=== PATIENT | female | born 2000 | race Caucasian/White ===

== ENCOUNTER 2023-01-28 14:14 | Inpatient (IN) | payer OTHER ==
[~2023-01-28] VITALS: Ht 165.1 cm; Wt 54.5 kg
[~2023-01-28 14:14] MED LIST: DEXAMETHASONE SOD PHOS 4 MG/ML VIAL IVP ONE; FentaNYL CITRATE PF 100 MCG/2 ML VIAL IVP ONE; HYDROmorphone HCL 2 MG/ML SYRINGE IVP ONE; LIDOCAINE/PF 2% 5 ML VIAL IM ONE; MIDAZOLAM HCL 2 MG/2 ML VIAL IVP ONE; ONDANSETRON HCL 4 MG/2 ML VIAL IVP ONE; PROPOFOL 1% 20 ML VIAL IVP ONE; SUCCINYLCHOLINE CHLORIDE 20 MG/ML 10 ML VIAL IVP ONE
[2023-01-28] MEDS ORDERED: MICROFIBRILLAR COLLAGEN 1 GM PACKAGE TP ONE (14:17)
[2023-01-28] MEDS ORDERED: BUPIVACAINE HCL/PF 0.5% 30 ML VIAL ONE (14:17)
[2023-01-28] MEDS ORDERED: VANCOMYCIN HCL 1 GM/VIAL ONE (14:17)
[2023-01-28] MEDS ORDERED: BUPIVACAINE HCL/PF 0.25% 30 ML VIAL ONE (14:27)
[2023-01-28] MEDS ORDERED: RINGERS SOLUTION,LACTATED 1,000 ML IV ONE (14:28)
[2023-01-28] MEDS ORDERED: BUPIVACAINE LIPOSOME/PF 1.3%-13.3MG/ML SUSPENSION 20 ML VIAL INJ ONE (14:30)
[2023-01-28] MEDS ORDERED: ASPI-1451 PO (14:31)
[2023-01-28] MEDS ORDERED: CEPH500C2 PO (14:31)
[2023-01-28] MEDS ORDERED: MUPI22OI2 TP (14:31)
[2023-01-28] MEDS ORDERED: ONDA4TAB96 PO (14:31)
[2023-01-28] MEDS ORDERED: HYDR-4061 PO (14:31)
[2023-01-28] MEDS ORDERED: BACTDSB PO (14:31)
[2023-01-28] MEDS ORDERED: IBUP-2070 PO (14:31)
[2023-01-28] MEDS ORDERED: ESCI10 PO (14:32)
[2023-01-28] MEDS ORDERED: CHOL500043 PO (14:32)
[2023-01-28] MEDS ORDERED: ACETAMINOPHEN 325 MG TABLET PO PRN (14:45)
[2023-01-28] MEDS ORDERED: ONDANSETRON HCL 4 MG/2 ML VIAL IVP PRN (14:45)
[2023-01-28] MEDS ORDERED: MAGNESIUM HYDROXIDE SUSPENSION 30 ML UDCUP PO PRN (14:45)
[2023-01-28 14:57] LABS: COVID AG,FIA SOURCE NASOPHARYNGEAL
[2023-01-28] MEDS ORDERED: SODIUM CHLORIDE 0.9% 1,000 ML IV ONE (15:00)
[2023-01-28] MEDS ORDERED: HEPARIN SODIUM,PORCINE 5,000 UNITS/ML VIAL SQ SCH (16:00)
[2023-01-28] MEDS ORDERED: MEPERIDINE-PF 25 MG/ML VIAL IVP PRN (16:15)
[2023-01-28] MEDS ORDERED: ACETAMINOPHEN 1000 MG/ISO-OSM 100 ML IV ONE (16:18)
[2023-01-28] MEDS ORDERED: FentaNYL CITRATE PF 100 MCG/2 ML VIAL ONE (16:26)
[2023-01-28] MEDS: FentaNYL CITRATE PF 100 MCG/2 ML VIAL IVP PRN ×2 (16:27→16:42)
[2023-01-28] MEDS ORDERED: HYDROmorphone HCL 2 MG/ML SYRINGE ONE (16:57)
[2023-01-28] MEDS: HYDROmorphone HCL 2 MG/ML SYRINGE IVP PRN ×5 (16:58→17:34)
[2023-01-28 18:16] LABS: BASOPHILS % (AUTO) 0.2 % (0.0-2.0); EOSINOPHILS % (AUTO) 0 % (1.0-6.0); HEMATOCRIT 29.5 % (36-46); HEMOGLOBIN 9.9 g/dL (12.0-16.0); LYMPHOCYTES % (AUTO) 8.4 % (22.0-44.0); MEAN CORPUSCULAR HEMOGLOBIN 28.5 pg (26.0-34.0); MEAN CORPUSCULAR HGB CONC 33.5 G/dL (31.0-37.0); MEAN CORPUSCULAR VOLUME 85 fL (80-100); MONOCYTES # (AUTO) 0.1 K/uL (0.1-1.0); MONOCYTES % (AUTO) 0.8 % (2.0-9.0); NEUTROPHILS # (AUTO) 10.6 K/uL (1.8-7.7); PLATELET COUNT (AUTO) 277 K/uL (150-450); RED BLOOD CELL COUNT(AUTO) 3.48 MIL/uL (4.00-5.20); RED CELL DISTRIBUTION WIDTH 12.6 % (11.5-14.5)
[2023-01-28 18:17] LABS: NEUTROPHILS % (AUTO) 90.6 % (40.0-70.0)
[2023-01-28 18:25] LABS: ANION GAP 7 mmol/L (8-16); CALCIUM, TOTAL 8.7 mg/dL (8.8-10.5); CARBON DIOXIDE 24 mmol/L (22-29); CHLORIDE 105 mmol/L (98-107); GLOMERULAR FILTR. RATE CALC > 60 mL/min (>60); GLUCOSE,RANDOM 122 mg/dL (70-110); POTASSIUM 3.8 mmol/L (3.5-5.1); SODIUM SERUM 136 mmol/L (136-145); UREA NITROGEN, BLOOD 12 mg/dL (7-18)
[2023-01-28 18:27] VITALS: BP 114/68
[2023-01-28 18:31] LABS: ALANINE AMINOTRANSFERASE 23 U/L (12-78); ALBUMIN 3.5 g/dL (3.4-5.0); ALKALINE PHOSPHATASE 57 U/L (46-116); ASPARTATE AMINOTRANSFERASE 16 U/L (15-37); BILIRUBIN,TOTAL 0.2 mg/dL (0.1-1.0); TOTAL PROTEIN, SERUM 7.3 g/dL (6.4-8.2)
[2023-01-28] MEDS: OxyCODONE HCL/ACETAMINOPHEN 5-325 MG TABLET PO PRN ×2 (18:39→21:17)
[2023-01-28 19:51] VITALS: BP 113/70
[2023-01-28] MEDS: DOCUSATE SODIUM 100 MG CAPSULE PO SCH (21:00)
[2023-01-28] MEDS: OXYGEN THERAPY IH SCH (21:18)
[2023-01-29] MEDS: OxyCODONE HCL/ACETAMINOPHEN 5-325 MG TABLET PO PRN ×2 (00:16→02:57)
[2023-01-29] MEDS: CeFAZolin 1 GM/DEXTROSE 50 ML IV SCH ×3 (00:16→15:48)
[2023-01-29 03:15] VITALS: BP 109/58
[2023-01-29] MEDS ORDERED: MORPHINE SULFATE 2 MG/ML SYRINGE IVP PRN (03:45)
[2023-01-29] MEDS: OXYGEN THERAPY IH SCH ×2 (08:00→21:06)
[2023-01-29 08:17] VITALS: BP 111/53
[2023-01-29] MEDS ORDERED: FentaNYL CITRATE PF 100 MCG/2 ML VIAL IVP ONE ×2 (08:30→12:00)
[2023-01-29] MEDS ORDERED: SODIUM CHLORIDE 0.9% 500 ML IV ONE (09:00)
[2023-01-29] MEDS: ENOXAPARIN SODIUM 40 MG/0.4 ML PF SYRINGE SQ SCH (09:02)
[2023-01-29] MEDS: FAMOTIDINE 20 MG TABLET PO SCH (09:03)
[2023-01-29] MEDS: DOCUSATE SODIUM 100 MG CAPSULE PO SCH ×2 (09:03→21:05)
[2023-01-29] MEDS: HYDROmorphone HCL 2 MG/ML SYRINGE IVP PRN ×2 (10:11→12:14)
[2023-01-29] MEDS ORDERED: LIDOCAINE/PF 2% 5 ML VIAL IM ONE (12:00)
[2023-01-29] MEDS ORDERED: SODIUM CHLORIDE 0.9% 1,000 ML ONE (13:08)
[2023-01-29] MEDS ORDERED: BUPIVACAINE HCL/PF 0.5% 30 ML VIAL ONE (13:42)
[2023-01-29] MEDS: ACETAMINOPHEN 1000 MG/ISO-OSM 100 ML IV SCH ×2 (15:09→21:04)
[2023-01-29 16:18] VITALS: BP 114/72
[2023-01-29] MEDS ORDERED: VANCOMYCIN HCL 1 GM in DEXTROSE 5%-WATER 250 ML IV ONE (17:30)
[2023-01-29 20:24] VITALS: BP 108/60
[2023-01-29] MEDS: MetroNIDAZOLE 500 MG TABLET PO SCH (21:05)
[2023-01-29] MEDS: CefTRIAXone SODIUM 2 GM in DEXTROSE 5%-WATER 50 ML IV SCH (22:38)
[2023-01-29] MEDS: VANCOMYCIN HCL 1 GM in DEXTROSE 5%-WATER 250 ML IV SCH (23:30)
[2023-01-30] MEDS: HYDROmorphone HCL 2 MG/ML SYRINGE IVP PRN ×3 (03:32→19:00)
[2023-01-30 04:59] VITALS: BP 112/53
[2023-01-30 06:43] LABS: BASOPHILS % (AUTO) 0.3 % (0.0-2.0); EOSINOPHILS % (AUTO) 0 % (1.0-6.0); HEMATOCRIT 29.4 % (36-46); HEMOGLOBIN 10.1 g/dL (12.0-16.0); LYMPHOCYTES # (AUTO) 1.5 K/uL (1.0-4.8); LYMPHOCYTES % (AUTO) 21.9 % (22.0-44.0); MEAN CORPUSCULAR HEMOGLOBIN 29.1 pg (26.0-34.0); MEAN CORPUSCULAR HGB CONC 34.3 G/dL (31.0-37.0); MEAN CORPUSCULAR VOLUME 85 fL (80-100); MONOCYTES # (AUTO) 0.4 K/uL (0.1-1.0); NEUTROPHILS % (AUTO) 71.8 % (40.0-70.0); PLATELET COUNT (AUTO) 294 K/uL (150-450); RED BLOOD CELL COUNT(AUTO) 3.47 MIL/uL (4.00-5.20); RED CELL DISTRIBUTION WIDTH 12.5 % (11.5-14.5)
[2023-01-30 06:49] LABS: ANION GAP 6 mmol/L (8-16); CALCIUM, TOTAL 8.9 mg/dL (8.8-10.5); CARBON DIOXIDE 27 mmol/L (22-29); CHLORIDE 103 mmol/L (98-107); CREATININE 0.59 mg/dL (0.60-1.30); GLOMERULAR FILTR. RATE CALC > 60 mL/min (>60); GLUCOSE,RANDOM 143 mg/dL (70-110); POTASSIUM 3.4 mmol/L (3.5-5.1); SODIUM SERUM 136 mmol/L (136-145); UREA NITROGEN, BLOOD 9 mg/dL (7-18)
[2023-01-30] MEDS ORDERED: POTASSIUM CHLORIDE 20 MEQ ER TABLET PO ONE (07:45)
[2023-01-30] MEDS: OXYGEN THERAPY IH SCH (08:00)
[2023-01-30] MEDS: VANCOMYCIN HCL 1 GM in DEXTROSE 5%-WATER 250 ML IV SCH ×3 (08:13→22:43)
[2023-01-30 08:20] VITALS: BP 103/65
[2023-01-30] MEDS: MetroNIDAZOLE 500 MG TABLET PO SCH ×3 (10:03→21:59)
[2023-01-30] MEDS: DOCUSATE SODIUM 100 MG CAPSULE PO SCH ×2 (10:03→21:59)
[2023-01-30] MEDS: ENOXAPARIN SODIUM 40 MG/0.4 ML PF SYRINGE SQ SCH (10:03)
[2023-01-30] MEDS: FAMOTIDINE 20 MG TABLET PO SCH (10:03)
[2023-01-30] MEDS: OxyCODONE HCL/ACETAMINOPHEN 10-325 MG TABLET PO PRN ×3 (10:04→18:56)
[2023-01-30] MEDS: ONDANSETRON HCL 4 MG/2 ML VIAL IVP PRN (13:46)
[2023-01-30] MEDS ORDERED: PERTUSS(ACELL),DIPH,TET VAC/PF 0.5 ML SYRINGE IM. ONE (15:15)
[2023-01-30 15:46] VITALS: BP 100/63
[2023-01-30] MEDS: CYCLOBENZAPRINE HCL 10 MG TABLET PO PRN (17:21)
[2023-01-30 20:14] VITALS: BP 102/45
[2023-01-30] MEDS: CefTRIAXone SODIUM 2 GM in DEXTROSE 5%-WATER 50 ML IV SCH (22:00)
[2023-01-30] MEDS: KETOROLAC TROMETHAMINE 30 MG/ML VIAL IVP PRN (22:43)
[2023-01-31 04:47] VITALS: BP 95/51
[2023-01-31 07:15] LABS: ANION GAP 6 mmol/L (8-16); CALCIUM, TOTAL 8.3 mg/dL (8.8-10.5); CARBON DIOXIDE 27 mmol/L (22-29); CHLORIDE 104 mmol/L (98-107); CREATININE 0.56 mg/dL (0.60-1.30); GLOMERULAR FILTR. RATE CALC > 60 mL/min (>60); GLUCOSE,RANDOM 92 mg/dL (70-110); POTASSIUM 3.6 mmol/L (3.5-5.1); SODIUM SERUM 137 mmol/L (136-145); UREA NITROGEN, BLOOD 17 mg/dL (7-18); VANCOMYCIN,RANDOM 15.5 mcg/mL (25.0-50.0)
[2023-01-31] MEDS: OXYGEN THERAPY IH SCH ×2 (08:00→20:00)
[2023-01-31] MEDS ORDERED: SODIUM CHLORIDE 0.9% 500 ML IV ONE (08:17)
[2023-01-31] MEDS: VANCOMYCIN HCL 1 GM in DEXTROSE 5%-WATER 250 ML IV SCH ×2 (08:18→15:12)
[2023-01-31] MEDS: FAMOTIDINE 20 MG TABLET PO SCH (08:19)
[2023-01-31] MEDS: DOCUSATE SODIUM 100 MG CAPSULE PO SCH ×2 (08:19→20:08)
[2023-01-31] MEDS: MetroNIDAZOLE 500 MG TABLET PO SCH ×3 (08:19→20:08)
[2023-01-31] MEDS: ENOXAPARIN SODIUM 40 MG/0.4 ML PF SYRINGE SQ SCH (08:21)
[2023-01-31] MEDS: KETOROLAC TROMETHAMINE 30 MG/ML VIAL IVP PRN (08:52)
[2023-01-31 08:58] VITALS: BP 104/62
[2023-01-31] MEDS: HYDROmorphone HCL 2 MG/ML SYRINGE IVP PRN ×2 (10:54→21:33)
[2023-01-31] MEDS: OxyCODONE HCL/ACETAMINOPHEN 10-325 MG TABLET PO PRN ×2 (15:18→20:13)
[2023-01-31 15:56] VITALS: BP 110/69
[2023-01-31 20:13] VITALS: BP 106/58
[2023-01-31] MEDS: CefTRIAXone SODIUM 2 GM in DEXTROSE 5%-WATER 50 ML IV SCH (23:29)
[2023-01-31] MEDS: CYCLOBENZAPRINE HCL 10 MG TABLET PO PRN (23:31)
[2023-02-01] MEDS: VANCOMYCIN HCL 1 GM in DEXTROSE 5%-WATER 250 ML IV SCH ×2 (00:22→08:20)
[2023-02-01] MEDS: OxyCODONE HCL/ACETAMINOPHEN 10-325 MG TABLET PO PRN ×6 (00:43→23:37)
[2023-02-01 01:25] VITALS: BP 120/73
[2023-02-01 04:11] VITALS: BP 100/63
[2023-02-01] MEDS: HYDROmorphone HCL 2 MG/ML SYRINGE IVP PRN (06:37)
[2023-02-01] MEDS: OXYGEN THERAPY IH SCH (08:00)
[2023-02-01] MEDS: ENOXAPARIN SODIUM 40 MG/0.4 ML PF SYRINGE SQ SCH (08:25)
[2023-02-01] MEDS: MetroNIDAZOLE 500 MG TABLET PO SCH (08:25)
[2023-02-01] MEDS: DOCUSATE SODIUM 100 MG CAPSULE PO SCH ×2 (08:25→20:11)
[2023-02-01] MEDS: FAMOTIDINE 20 MG TABLET PO SCH (08:25)
[2023-02-01 09:29] VITALS: BP 93/57
[2023-02-01] MEDS: ONDANSETRON HCL 4 MG/2 ML VIAL IVP PRN (13:33)
[2023-02-01 16:00] VITALS: BP 103/64
[2023-02-01 19:53] VITALS: BP 106/61
[2023-02-01] MEDS: CefTRIAXone SODIUM 2 GM in DEXTROSE 5%-WATER 50 ML IV SCH (23:33)
[2023-02-02 04:41] VITALS: BP 100/65
[2023-02-02 07:53] VITALS: BP 106/58
[2023-02-02] MEDS: DOCUSATE SODIUM 100 MG CAPSULE PO SCH ×2 (09:00→20:20)
[2023-02-02] MEDS: MULTIVITAMINS WITH MINERALS, THERAPEUTIC TABLET PO SCH (09:03)
[2023-02-02] MEDS: FAMOTIDINE 20 MG TABLET PO SCH (09:04)
[2023-02-02] MEDS: OxyCODONE HCL/ACETAMINOPHEN 10-325 MG TABLET PO PRN ×2 (09:05→22:13)
[2023-02-02] MEDS: ENOXAPARIN SODIUM 40 MG/0.4 ML PF SYRINGE SQ SCH (09:06)
[2023-02-02 09:59] LABS: BASOPHILS % (AUTO) 0.6 % (0.0-2.0); EOSINOPHILS % (AUTO) 1.8 % (1.0-6.0); HEMATOCRIT 31.8 % (36-46); HEMOGLOBIN 10.6 g/dL (12.0-16.0); LYMPHOCYTES # (AUTO) 1.6 K/uL (1.0-4.8); LYMPHOCYTES % (AUTO) 28.9 % (22.0-44.0); MEAN CORPUSCULAR HEMOGLOBIN 28.3 pg (26.0-34.0); MEAN CORPUSCULAR HGB CONC 33.4 G/dL (31.0-37.0); MEAN CORPUSCULAR VOLUME 85 fL (80-100); MONOCYTES # (AUTO) 0.5 K/uL (0.1-1.0); NEUTROPHILS # (AUTO) 3.3 K/uL (1.8-7.7); NEUTROPHILS % (AUTO) 59.7 % (40.0-70.0); PLATELET COUNT (AUTO) 297 K/uL (150-450); RED BLOOD CELL COUNT(AUTO) 3.75 MIL/uL (4.00-5.20); RED CELL DISTRIBUTION WIDTH 12.9 % (11.5-14.5)
[2023-02-02 10:07] LABS: ANION GAP 7 mmol/L (8-16); CALCIUM, TOTAL 8.9 mg/dL (8.8-10.5); CARBON DIOXIDE 30 mmol/L (22-29); CHLORIDE 102 mmol/L (98-107); CREATININE 0.72 mg/dL (0.60-1.30); GLOMERULAR FILTR. RATE CALC > 60 mL/min (>60); GLUCOSE,RANDOM 107 mg/dL (70-110); POTASSIUM 3.6 mmol/L (3.5-5.1); SODIUM SERUM 139 mmol/L (136-145); UREA NITROGEN, BLOOD 10 mg/dL (7-18)
[2023-02-02] MEDS: HYDROmorphone HCL 2 MG/ML SYRINGE IVP PRN (11:03)
[2023-02-02] MEDS: ONDANSETRON HCL 4 MG/2 ML VIAL IVP PRN ×2 (11:04→22:19)
[2023-02-02 15:28] VITALS: BP 105/58
[2023-02-02 21:40] VITALS: BP 116/74
[2023-02-02] MEDS: CefTRIAXone SODIUM 2 GM in DEXTROSE 5%-WATER 50 ML IV SCH (22:17)
[2023-02-03 04:00] VITALS: BP 102/71
[2023-02-03] MEDS: OxyCODONE HCL/ACETAMINOPHEN 10-325 MG TABLET PO PRN ×3 (04:04→15:36)
[2023-02-03] MEDS: OXYGEN THERAPY IH SCH (08:00)
[2023-02-03 08:04] VITALS: BP 102/64
[2023-02-03] MEDS: FAMOTIDINE 20 MG TABLET PO SCH (10:17)
[2023-02-03] MEDS: DOCUSATE SODIUM 100 MG CAPSULE PO SCH (10:17)
[2023-02-03] MEDS: MULTIVITAMINS WITH MINERALS, THERAPEUTIC TABLET PO SCH (10:17)
[2023-02-03] MEDS: ENOXAPARIN SODIUM 40 MG/0.4 ML PF SYRINGE SQ SCH (10:17)
[2023-02-03] MEDS ORDERED: LEVO750T68 PO (13:58)
[2023-02-03 15:15] VITALS: BP 111/71
== END 2023-02-03 17:20 | disposition home health service (06) | DRG 580 ==
LOC: EMS 14:27 → 6S 15:32
PROVIDERS: ADMIT Internal Medicine; ATTEND Internal Medicine
PROC: 0QH Lower Bones, Insertion (ICD-10-PCS; 2023-01-28)
PROC: 0JDQ0ZZ Extraction of Right Foot Subcutaneous Tissue and Fascia, Open Approach (ICD-10-PCS; principal; 2023-01-28 15:05)
DX: S91.301A Unspecified open wound, right foot, initial encounter (principal); L03.115 Cellulitis of right lower limb; S97.81XA Crushing injury of right foot, initial encounter; Z20.822 Contact with and (suspected) exposure to COVID-19; E87.6 Hypokalemia; D64.9 Anemia, unspecified; M21.961 Unspecified acquired deformity of right lower leg; W23.0XXA Caught, crushed, jammed, or pinched between moving objects, initial encounter; Z79.2 Long term (current) use of antibiotics; Z79.899 Other long term (current) drug therapy; Z79.891 Long term (current) use of opiate analgesic; Z79.82 Long term (current) use of aspirin; Y93.89 Activity, other specified; Y92.89 Other specified places as the place of occurrence of the external cause; Y99.8 Other external cause status
CPT/HCPCS: 80048; 80053; 80202; 85025; 86140; 87070; 87101; 87186; 87205; 88304; 90715; 97110; 97163; 97530; 97535; 99285; C9290; G0238; J0131; J0330; J0690; J0696; J1100; J1170; J1650; J1885; J2250; J2270; J2405; J2704; J3010; J3370; J3490; J7030; J7040; J7060; J7120; 36415-L1; 36415-TC; C1716; Z7610

== ENCOUNTER 2023-02-25 05:38 | Day surgery (SDC) | payer OTHER ==
[~2023-02-25] VITALS: Ht 160 cm; Wt 60.4 kg
[~2023-02-25 05:38] MED LIST changes: -DEXAMETHASONE SOD PHOS 4 MG/ML VIAL IVP ONE; -FentaNYL CITRATE PF 100 MCG/2 ML VIAL IVP ONE; -HYDROmorphone HCL 2 MG/ML SYRINGE IVP ONE; +IBUP-2070 PO; -LIDOCAINE/PF 2% 5 ML VIAL IM ONE; -MIDAZOLAM HCL 2 MG/2 ML VIAL IVP ONE; -ONDANSETRON HCL 4 MG/2 ML VIAL IVP ONE; -PROPOFOL 1% 20 ML VIAL IVP ONE; -SUCCINYLCHOLINE CHLORIDE 20 MG/ML 10 ML VIAL IVP ONE
[2023-02-25] MEDS ORDERED: RINGERS SOLUTION,LACTATED 1,000 ML IV ONE ×2 (05:45→06:00)
[2023-02-25] MEDS ORDERED: MICROFIBRILLAR COLLAGEN 1 GM PACKAGE TP ONE (05:55)
[2023-02-25] MEDS ORDERED: BUPIVACAINE HCL/PF 0.25% 30 ML VIAL ONE (05:55)
[2023-02-25] MEDS ORDERED: VANCOMYCIN HCL 1 GM/VIAL ONE (05:55)
[2023-02-25] MEDS ORDERED: SODIUM CL IRRIG SOLN BAG 3,000 ML IRRIG ONE (05:56)
[2023-02-25] MEDS ORDERED: CeFAZolin 2 GM/DEXTROSE 0 ML IV ONE (05:56)
[2023-02-25] MEDS ORDERED: MINERAL OIL 10 ML VIAL TP ONE ×2 (06:06→06:21)
[2023-02-25 06:08] LABS: COVID AG,FIA SOURCE NASAL SWAB
[2023-02-25] MEDS ORDERED: BUPIVACAINE LIPOSOME/PF 1.3%-13.3MG/ML SUSPENSION 20 ML VIAL INJ ONE (06:15)
[2023-02-25] MEDS ORDERED: ACETAMINOPHEN 1000 MG/ISO-OSM 100 ML IV ONE (06:58)
[2023-02-25] MEDS ORDERED: SUGAMMADEX SODIUM 200 MG/2 ML VIAL IVP ONE (07:45)
[2023-02-25] MEDS ORDERED: DiphenhydrAMINE HCL 50 MG/ML VIAL ONE (08:33)
[2023-02-25] MEDS ORDERED: DiphenhydrAMINE HCL 50 MG/ML VIAL IVP ONE (08:45)
[2023-02-25] MEDS ORDERED: FentaNYL CITRATE PF 100 MCG/2 ML VIAL IVP PRN (08:45)
[2023-02-25] MEDS ORDERED: HYDROmorphone HCL 2 MG/ML SYRINGE IVP PRN (08:45)
[2023-02-25] MEDS ORDERED: ONDANSETRON HCL 4 MG/2 ML VIAL IVP ONE (12:00)
[2023-02-25] MEDS ORDERED: LIDOCAINE/PF 2% 5 ML VIAL IM ONE (12:00)
[2023-02-25] MEDS ORDERED: ROCURONIUM BROMIDE 10 MG/ML 5 ML VIAL IVP ONE (12:00)
[2023-02-25] MEDS ORDERED: DEXAMETHASONE SOD PHOS 4 MG/ML VIAL IVP ONE (12:00)
[2023-02-25] MEDS ORDERED: MIDAZOLAM HCL 2 MG/2 ML VIAL IVP ONE (12:00)
[2023-02-25] MEDS ORDERED: HYDROmorphone HCL 2 MG/ML SYRINGE IVP ONE (12:00)
[2023-02-25] MEDS ORDERED: PROPOFOL 1% 20 ML VIAL IVP ONE (12:00)
[2023-02-25] MEDS ORDERED: FentaNYL CITRATE PF 100 MCG/2 ML VIAL IVP ONE (12:00)
[2023-02-25] MEDS ORDERED: KETOROLAC TROMETHAMINE 60 MG/2 ML VIAL IM ONE (12:00)
[2023-02-25] MEDS ORDERED: OXYGEN THERAPY IH SCH (20:00)
== END 2023-02-25 10:15 | disposition home or self-care (01) ==
LOC: SURGERY 05:38
PROVIDERS: ATTEND Orthopaedic Surgery
DX: Z46.89 Encounter for fitting and adjustment of other specified devices (principal); S97.81XA Crushing injury of right foot, initial encounter; M19.90 Unspecified osteoarthritis, unspecified site; Z20.822 Contact with and (suspected) exposure to COVID-19; X58.XXXA Exposure to other specified factors, initial encounter; Y92.89 Other specified places as the place of occurrence of the external cause; Y93.89 Activity, other specified; Y99.8 Other external cause status
CPT/HCPCS: 84703; 87426; 11044; 20694; J3490 ×3; J2704; J0690; J1100; J1200; J3010; J1170; J1885; J2250; J2405; J3370; Q9967; J7120; J0131; C9290; C9803

== ENCOUNTER 2023-04-08 05:28 | Day surgery (SDC) | payer OTHER ==
[~2023-04-08] VITALS: Ht 160 cm; Wt 67.3 kg
[2023-04-08] MEDS ORDERED: RINGERS SOLUTION,LACTATED 1,000 ML IV ONE ×2 (05:34→06:00)
[2023-04-08] MEDS ORDERED: ETHYL ALCOHOL 62% ANTISEPTIC NASAL SANITIZER 0.6 ML AMPUL NASAL ONE (06:00)
[2023-04-08] MEDS ORDERED: BUPIVACAINE/EPI/PF 0.5% 30 ML VIAL ONE (06:53)
[2023-04-08] MEDS ORDERED: MINERAL OIL 10 ML VIAL TP ONE ×2 (06:54→07:03)
[2023-04-08] MEDS ORDERED: HYDROmorphone HCL 2 MG/ML SYRINGE IVP ONE (07:00)
[2023-04-08] MEDS ORDERED: ONDANSETRON HCL 4 MG/2 ML VIAL IVP ONE (07:00)
[2023-04-08] MEDS ORDERED: LIDOCAINE/PF 2% 5 ML VIAL IM ONE (07:00)
[2023-04-08] MEDS ORDERED: SUCCINYLCHOLINE CHLORIDE 20 MG/ML 10 ML VIAL IVP ONE (07:00)
[2023-04-08] MEDS ORDERED: FentaNYL CITRATE PF 100 MCG/2 ML VIAL IVP ONE (07:00)
[2023-04-08] MEDS ORDERED: MIDAZOLAM HCL 2 MG/2 ML VIAL IVP ONE (07:00)
[2023-04-08] MEDS ORDERED: KETOROLAC TROMETHAMINE 60 MG/2 ML VIAL IM ONE (07:00)
[2023-04-08] MEDS ORDERED: PROPOFOL 1% 20 ML VIAL IVP ONE (07:00)
[2023-04-08] MEDS ORDERED: DiphenhydrAMINE HCL 50 MG/ML VIAL IVP ONE (09:30)
[2023-04-08] MEDS ORDERED: DiphenhydrAMINE HCL 50 MG/ML VIAL ONE (09:50)
== END 2023-04-08 11:30 | disposition home or self-care (01) ==
LOC: SDS 05:28 → 6N 05:28 → UNDOADMIN 05:28 → EDSTATUS 07:30 → UNDODISIN 11:30 → SDS 11:30
PROVIDERS: ATTEND Surgery Plastic and Reconstructive Surgery
DX: S91.311A Laceration without foreign body, right foot, initial encounter (principal); Z98.890 Other specified postprocedural states; X58.XXXA Exposure to other specified factors, initial encounter; Y92.89 Other specified places as the place of occurrence of the external cause; Y93.89 Activity, other specified; Y99.8 Other external cause status
CPT/HCPCS: 84703; 87081; 15120; 29515; J3490 ×2; J2704; J0690; J1200; J3010; J1170; J1885; J2250; J2405; J0330; J7120